=== PATIENT | female | born 1965 | race Hispanic/Latino ===

== ENCOUNTER 2024-07-08 19:35 | Emergency (ER) | payer BC ==
[~2024-07-08] VITALS: Ht 157.5 cm; Wt 100.0 kg
[~2024-07-08 19:35] MED LIST: AMOXICILLIN/CL875 MG PO; BACTRIM DS1 TAB PO; ELIMITE5 % TOP; HYDROCORTISO2.51 EX; LOPRESSOR12.5 MG PO; NO MEDS; SOLU-MEDROL125 MG IM
[2024-07-08] MEDS ORDERED: ALBUTEROL SULFATE 2.5 MG VIAL IN ONE (20:25)
[2024-07-08] MEDS ORDERED: SODIUM CHLORIDE 0.9% 1,000 ML IV ONE (20:25)
[2024-07-08 21:01] LABS: BASO% 0.3 % (0-3); EOS% 1.2 % (0-8); HEMATOCRIT 41.9 % (37.0-47.0); HEMOGLOBIN 14.3 g/dl (12.0-16.0); IMMATURE GRANULOCYTES 0.2 % (0.0-5.0); LYMPH% 34.1 % (15-41); MEAN CELL VOLUME 85.9 fL CALC (80.0-100.0); MEAN CORPUSCULAR HGB 29.3 pG CALC (26.0-32.0); MEAN CORPUSCULAR HGB CONC 34.1 g/dL CAL (32.0-36.0); NEUT# 5.81 thou/uL (2.00-7.15); NEUT% 58.2 % (42-76); RED BLOOD COUNT 4.88 mill/uL (4.20-5.60); RED CELL DISTRI WIDTH 13.7 % (11.5-15.5)
[2024-07-08 21:07] LABS: URINE BILIRUBIN - DIPSTICK Negative (NEGATIVE); URINE BLOOD DIPSTICK Negative (NEGATIVE); URINE CLARITY Clear; URINE GLUCOSE - DIPSTICK Negative (NEGATIVE); URINE KETONE 15 mg/dL (NEGATIVE); URINE LEUK ESTERASE Negative (Negative); URINE NITRITE - DIPSTICK Negative (Negative); URINE PROTEIN - DIPSTICK Negative (NEG-TRACE); URINE UROBILINOGEN - DIPSTICK 0.2 E.U./dL (0.2)
[2024-07-08 21:15] LABS: URINE COLOR Yellow
[2024-07-08 21:17] LABS: ALBUMIN 4.7 g/dL (3.2-5.0); ALKALINE PHOSPHATASE 146 u/l (38-126); ANION GAP 19 (6-22 (CALC)); BUN 10 mg/dL (7-17); BUN/CREATININE RATIO 14 (12-20 (CALC)); CARBON DIOXIDE 18 mmol/l (22-30); CHLORIDE 105 mmol/l (95-108); CREATININE 0.7 mg/dL (0.5-1.0); ESTIMATED GFR 99 ML/MIN (>=90 (CALC)); LIPASE 111 u/l (23-300); POTASSIUM 3.8 mmol/l (3.5-5.1); SGOT/AST 35 u/l (14-36); SODIUM 138 mmol/l (137-146); TOTAL PROTEIN 7.8 g/dL (6.3-8.2)
[2024-07-08 21:20] LABS: BILIRUBIN, TOTAL 0.9 mg/dL (0.02-1.3)
[2024-07-08] MEDS ORDERED: LIDOCAINE VISCOUS 2% 15 ML UDC PO ONE (21:40)
[2024-07-08] MEDS ORDERED: FAMOTIDINE 10MG/ML 2ML SDV IV ONE (21:40)
[2024-07-08] MEDS ORDERED: ALUM & MAG HYDROX-SIMETHICONE 30 ML PO ONE (21:40)
[2024-07-08 22:08] VITALS: BP 167/92
[2024-07-08] MEDS ORDERED: PROTONIX40 MG PO (22:41)
[2024-07-08] MEDS ORDERED: BENZONATATE150 MG PO (22:45)
[2024-07-08 22:58] VITALS: BP 158/95
== END 2024-07-08 22:58 | disposition home or self-care (01) | DRG 392 ==
LOC: ED 19:35
PROVIDERS: Emergency Medicine
DX: K21.9 Gastro-esophageal reflux disease without esophagitis (principal); Z20.822 Contact with and (suspected) exposure to COVID-19